=== PATIENT | female | born 1955 | race Caucasian/White ===

== ENCOUNTER 2023-09-03 11:39 | Emergency (ER) | payer MEDICARE, SELFPAY ==
[2023-09-03 11:42] VITALS: PULSE 69; RESP 18; TEMP 36.5; O2SAT 97; BMI 43.8
[2023-09-03 11:50] VITALS: BP 192/87
--- NOTE | 2023-09-03 12:12 | EDS_ITS ---
HPI HPI - Fall History of Present Illness Chief Complaint: Fall Informant: patient Occured/Mechanism Occurred: Today Mechanism/Context: Yes same level fall Pain/Injury Pain Location: lower extremity (Left hip) Quality of Pain: Dull Worsened by: Movement Relieved by: Nothing Associated Symptoms Associated Symptoms: Positive for Inability to ambulate; Negative for Parasthesias, Weakness, Loss of function, Loss of consciousness or Amnesia Narrative Narrative: Patient presents with pain in her left began after a fall today. Patient states he was trying to straighten a picture that was hanging on arrival. Patient states the picture started to fall and she reached to catch it. Patient states she felt a pop in her left hip. Patient states her pain is dull. Patient states it is worse with movement. Patient states she did not try to ambulate after the fall. Patient denies any paresthesias or weakness. Patient denies any head injury or loss of consciousness. Patient denies any other injuries. PFSH PFSH Medical History Hx of cyst of breast Allergy/AdvReac Type Severity Reaction Status Date / Time niacin AdvReac Intermediate Hives Verified 09/03/23 11:42 Penicillins AdvReac Intermediate Hives Verified 09/03/23 11:42 Surgical History Hx of appendectomy Hx of cholecystectomy Hx of parathyroidectomy Hx of tonsillectomy Social History Smoking Status: Never smoker ROS ROS ED Constitutional Constitutional ED: Denies chills or fever(s) Eyes Eyes: Denies blurry vision or change in vision ENT ENT ED: Denies rhinorrhea or sore throat Cardiovascular Cardiovascular: Denies chest pain or palpitations Respiratory/Chest Respiratory/Chest: Denies cough or dyspnea Gastrointestinal Gastrointestinal: Denies nausea or vomiting Genitourinary Genitourinary ED: Denies dysuria or hematuria Musculoskeletal Musculoskeletal: Denies back pain or neck pain Integumentary Denies abscess or rash Neurologic Neurologic: Denies headache(s) or weakness Allergic/Immunologic Allergic/Immunologic ED: Denies mouth swelling or urticaria EXAM Physical Exam Const Vital Signs: 09/03/23 11:42 10/26/23 11:50 Temperature 97.7 F L Temperature Source Temporal Pulse Rate 69 Respiratory Rate 18 Blood Pressure 192/87 H Blood Pressure Mean 122 Pulse Ox 97 Oxygen Delivery Method Room Air Positive well nourished and well developed General Appearance ED: well developed and NAD HEENT Reports normocephalic atraumatic Neck full ROM and supple Resp normal respiratory effort and clear to auscultation bilaterally Cardio regular rate and regular rhythm Neuro oriented x3, CN's II-XII intact bilaterally, moves all extremities, no focal motor deficits and no sensory deficits noted Mora Coma Scale: document GCS findings Spontaneous Obeys Commands Oriented 15 Sensorium / Orientation: alert Motor Exam: strength 5/5 throughout Psych mental status grossly normal MDM MDM MDM Narrative Medical decision making narrative: Differential diagnosis includes fracture, ligamentous injury, labrum tear, and degenerative arthritis. X-rays of the left hip will be obtained to assess for fracture. Radiography Diagnostic Testing: X-rays of the left hip were obtained. There are 3 views. On my independent interpretation, there is no acute fracture or dislocation. There are no degenerative changes noted. Radiologist also interpreted the x-rays and agrees. Treatment and Re-Evaluation Narrative: Patient was advised of her findings. Patient declined analgesics at this time. Patient was able to ambulate here in the emergency department. Patient was instructed to use ice or heat to her hip. Patient was instructed to follow-up with her primary care physician in 5 to 7 days. Patient understood and was agreeable with the plan. All questions were answered. Discharge Plan Triage Chief Complaint: Fall Other Complaint: Lower Extremity Injury ED Provider: Francisco Delgado Dx/Rx/DC Orders Clinical Impression: Left hip pain Instructions: ED Hip Strain Primary Care Provider: Care Physician,No Primary Referrals: [facility] Doctor,Out of [Non-Staff] - 5-7 Days Disposition Disposition: Home, Self Care
--- NOTE | 2023-09-03 12:47 | RAD_ITS ---
STUDY: X-RAY - PELVIS AND LEFT HIP REASON FOR EXAM: Female, 67 years old. Left hip pain following a fall. TECHNIQUE: 3 views of the pelvis and hip. COMPARISON: None. FINDINGS: There is a non-specific bowel gas pattern. Normal visualized soft tissue structures. Normal bilateral iliac wings, sacroiliac joints and visualized sacrum. Normal bilateral superior and inferior pubic rami. Normal pubic symphysis. Normal bilateral ischial tuberosities. Normal visualized femoral head. Normal acetabulum. Normal hip joint. RAD/HIP, UNI W/ Pelvis 2-3 Views IMPRESSION: Normal x-ray examination of the pelvis and hip. Electronically Signed: Joey Vickers MD at 13:26 EDT ,
[2023-09-03 14:46] VITALS: BP 168/76; PULSE 76; RESP 15; O2SAT 96
== END 2023-09-03 14:47 | disposition home or self-care (01) ==
PROVIDERS: Emergency Provider Emergency Medicine; Visit Provider Emergency Medicine
DX: M25.552 Pain in left hip (principal); R26.2 Difficulty in walking, not elsewhere classified; W19.XXXA Unspecified fall, initial encounter
CPT/HCPCS: 73502; 99285